=== PATIENT | male | born 1995 | race Two or more races ===

== ENCOUNTER 2025-02-01 03:25 | Emergency (ER) | payer OTHER ==
[~2025-02-01] VITALS: Ht 182.9 cm; Wt 68.0 kg
[2025-02-01 04:53] LABS: BASO % 0.5 % (0.1-1.2); EOS # 0.42 (0.04-0.54); EOS % 4.4 % (0.7-7.0); LYMPH # 2.47 (1.18-3.74); LYMPH % 25.8 % (19.3-53.1); MEAN PLATELET VOLUME 9.40 fl (9.4-12.4); MONO # 0.93 (0.24-0.82); MONO % 9.7 % (4.7-12.5); NEUT # 5.67 (1.56-6.13); NEUT % 59.2 % (34.0-71.1); RED CELL DISTRIBUTION WIDTH 13.8 % (11.6-14.4)
[2025-02-01 05:23] LABS: ALT/SGPT 17.0 U/L (12-78); AST/SGOT 14.0 U/L (15-37); BILIRUBIN TOTAL 0.32 mg/dL (0.3-1.2); BUN CREA RATIO 14.0 (7.0-25.0); CREATININE SERUM 1.04 mg/dL (0.70-1.30); GFR 85.04; GLOBULINA 3.6 G/DL (2.4-3.5); GLUCOSE FASTING 92.0 mg/dL (65-100); OSMOLALITY SERUM 285.0 MOSM/KG (275-295)
[2025-02-01] MEDS ORDERED: CEFTRIAXONE SODIUM 1,000 MG VIAL IM STA (05:56)
[2025-02-01] MEDS ORDERED: KETOROLAC TROMETHAMINE 30 MG VIAL IM STA (05:56)
[2025-02-01] MEDS ORDERED: KETOROLAC TROMETHAMINE 30 MG VIAL ONE (06:19)
[2025-02-01] MEDS ORDERED: CEFTRIAXONE SODIUM 1,000 MG VIAL ONE (06:19)
[2025-02-01 06:57] LABS: COVID-19 AG NEGATIVE (NEGATIVE)
== END 2025-02-01 06:32 | disposition home or self-care (01) ==
LOC: ER 03:25
PROVIDERS: Physician Assistant Medical
DX: J06.9 Acute upper respiratory infection, unspecified (principal); H66.90 Otitis media, unspecified, unspecified ear; Z20.822 Contact with and (suspected) exposure to COVID-19